=== PATIENT | female | born 2000 | race Caucasian/White ===

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

== ENCOUNTER 2019-01-25 09:00 | Emergency (ER) | payer MEDICAID ==
[~2019-01-25] VITALS: Ht 162.6 cm; Wt 63.5 kg
[2019-01-25 09:21] VITALS: BP 127/83
--- NOTE | 2019-01-25 09:22 | NUR ---
TO ED 12 WITH STEADY GAIT
--- NOTE | 2019-01-25 09:25 | NUR ---
PT TO ED WITH C/O ABD PAIN S/P EATING FRIED FISH X 1 DAY. PT REPORTS MILD NAUSEA. ABD IS SOFT NON TENDER, NO DISTENTION NOTED. BOWEL SOUNDS PRESENT X 4. REPORTS MILD PAIN UPON PALPATION OF RLQ. PT PLACED INTO BED, PENDING MD WILKINSON.
[2019-01-25] MEDS ORDERED: NACL 0.9% 1,000 ML IV ONE (10:59)
[2019-01-25] MEDS ORDERED: NACL 0.9% 1,000 ML IV SCH (10:59)
[2019-01-25] MEDS ORDERED: MORPHINE SULFATE 4 MG/ML SYR IVP ONE (11:00)
[2019-01-25] MEDS ORDERED: KETOROLAC 30 MG/ML VIAL IVP ONE (11:00)
[2019-01-25] MEDS ORDERED: PROMETHAZINE 25 MG/ML VIAL IM ONE (11:00)
--- NOTE | 2019-01-25 11:10 | NUR ---
PT TO CT VIA W/C IN STABLE CONDITION
--- NOTE | 2019-01-25 11:18 | NUR ---
PT RETURENED FROM CT VIA W/C IN STABLE CONDITION
[2019-01-25 11:22] LABS: BASOPHILS # (AUTO) 0.1 K/uL (0.00-0.22); EOSINOPHILS # (AUTO) 0.6 K/uL (0-0.4); EOSINOPHILS % (AUTO) 7.3 % (0.0-4.0); HEMATOCRIT 39.5 % (36-48); HEMOGLOBIN 13.4 g/dL (12.0-16.0); LYMPHOCYTES # (AUTO) 1.8 K/uL (2.5-16.5); LYMPHOCYTES % (AUTO) 22.4 % (20.5-51.1); MEAN CORPUSCULAR HEMOGLOBIN 31 pg (27-31); MEAN CORPUSCULAR HGB CONC 34 g/dL (33-37); MEAN CORPUSCULAR VOLUME 90.9 fL (80-94); MONOCYTES # (AUTO) 0.6 K/uL (0.8-1.0); MONOCYTES % (AUTO) 8.1 % (1.7-9.3); NEUTROPHILS # (AUTO) 4.9 K/uL (1.8-7.7); NEUTROPHILS % (AUTO) 61.2 % (42.2-75.2); PLATELET COUNT (AUTO) 193 K/uL (140-450); RED BLOOD CELL COUNT(AUTO) 4.34 MIL/uL (4.20-5.40); RED CELL DISTRIBUTION WIDTH 12.7 % (11.6-13.7)
[2019-01-25 11:31] LABS: CARBON DIOXIDE 24.2 mmol/L (21-32); CHLORIDE 108 mmol/L (98-107); CREATININE 0.7 mg/dL (0.6-1.3); GFR ARICAN-AMERICAN 137 mL/min (>90); GLUCOSE 90 mg/dL (74-106); POTASSIUM 4.2 mmol/L (3.5-5.1); SODIUM SERUM 140 mmol/L (136-145); UREA NITROGEN, BLOOD 12 mg/dL (7-18)
[2019-01-25 11:38] LABS: ALBUMIN 3.6 g/dL (3.4-5.0); AMYLASE 51 U/L (25-115); ASPARTATE AMINOTRANSFERASE 16 U/L (15-37); LIPASE 121 U/L (73-393); TOTAL BILIRUBIN 0.8 mg/dL (0.0-1.0)
[2019-01-25 11:43] LABS: BARBITURATE, URINE NEG. ng/ml (NEG <=200); BENZODIAZEPINE, URINE NEG. ng/mL (NEG <=200); CANNABINOID, URINE POS. ng/mL (NEG <=50); COCAINE, URINE NEG. ng/mL (NEG <=300); OPIATE, URINE NEG. ng/mL (NEG <=2000); PHENCYCLIDINE SCREEN,URINE NEG. ng/mL (NEG <=25)
[2019-01-25 11:53] LABS: APPEARANCE,URINE CLEAR (CLEAR); BILIRUBIN,URINE NEGATIVE (NEGATIVE); BLOOD, URINE NEGATIVE (NEGATIVE); LEUKOCYTE ESTERASE ,URINE 1+ (NEGATIVE); NITRITE, URINE NEGATIVE (NEGATIVE); UGLUCOSE NEGATIVE (NEGATIVE)
[2019-01-25 11:56] LABS: COLOR,URINE YELLOW (YELLOW)
[2019-01-25 12:03] LABS: RBC,URINE 0-5 /HPF (0-5); WBC,URINE 0-5 /HPF (0-5)
[2019-01-25] MEDS ORDERED: LACTULOSE 20 GM/30 ML UDC PO ONE (13:20)
--- NOTE | 2019-01-25 13:20 | NUR ---
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 WILL CONTINUE TO ASSESS.
--- NOTE | 2019-01-25 14:21 | NUR ---
Patient discharged with v/s stable. Written and verbal after care instructions given and explained. Patient alert, oriented and verbalized understanding of instructions. Ambulatory with steady gait. All questions addressed prior to discharge. ID band removed. Patient advised to follow up with PMD. Rx of COLACE given. Patient educated on indication of medication including possible reaction and side effects. Opportunity to ask questions provided and answered. PT ADVISED NOT TO DRIVE, PT MOTHER IN ER TO TAKE PT HOME.
[2019-01-25 14:22] VITALS: BP 119/74
--- NOTE | 2019-01-28 11:33 | NUR ---
Late entry. Confirmed with RN that 0.9 NS at 100 ml/hr ended at 1420.
== END 2019-01-25 14:21 | disposition home or self-care (01) ==
LOC: MED 09:00
DX: K59.00 Constipation, unspecified (principal)
CPT/HCPCS: 36415; 74176; 76856; 80053; 80305; 81001; 81025; 82150; 83690; 84703; 85025; 87086; 96372; 96374; 96375; 99284; G0482; J1885; J2270; J2550; J7030; Q0092